=== PATIENT | male | born 1980 | race Caucasian/White ===

== ENCOUNTER 2020-02-16 13:48 | Inpatient (IN) | payer BC ==
[2020-02-16] MEDS ORDERED: Sodium Chloride 0.9% 1,000 ML IV ONE (14:08)
[2020-02-16] MEDS ORDERED: Ketorolac 30 MG/ML SDV IVPUSH ONE (14:10)
--- NOTE | 2020-02-16 14:21 | EDM.PDOC ---
ED HPI GENERAL MEDICAL PROBLEM - General Chief Complaint: Possible Sepsis Stated Complaint: ALMA BULLOCK Time Seen by Provider: 02/16/20 13:57 Source of Information: Reports: Patient History Limitations: Reports: No Limitations - History of Present Illness INITIAL COMMENTS - FREE TEXT/NARRATIVE: Is a 39-year-old male presents today for left hand swelling. Patient states t hat he has hand: The corner has some minor cuts that he attempted to clean at home. Since the past 2 days his hands become more swollen red and painful. Patient is not take any pain meds at home. Patient does report having a tetanus shot 4 years ago. Patient denies any fever chills nausea vomiting or other complaints. L hand Pain Score (Numeric/FACES): 8 - Related Data Allergies Allergy/AdvReac Type Severity Reaction Status Date / Time No Known Allergies Allergy Verified 02/16/20 13:58 Home Meds: Home Meds . [No Known Home Meds] 02/16/20 [History] Past Medical History Other HEENT History: stitches to upper eyelid Other Musculoskeletal History: multiple knee surgeries - Infectious Disease History Infectious Disease History: Reports: Chicken Pox Social & Family History - Family History Family Medical History: No Pertinent Family History - Caffeine Use Caffeine Use: Reports: Tea - Recreational Drug Use Recreational Drug Type: Reports: Marijuana/Hashish ED ROS GENERAL - Review of Systems Review Of Systems: See Below Constitutional: Reports: No Symptoms HEENT: Reports: No Symptoms Respiratory: Reports: No Symptoms Cardiovascular: Reports: No Symptoms Endocrine: Reports: No Symptoms GI/Abdominal: Reports: No Symptoms : Reports: No Symptoms Musculoskeletal: Reports: Hand Pain Skin: Reports: No Symptoms Neurological: Reports: No Symptoms Psychiatric: Reports: No Symptoms Hematologic/Lymphatic: Reports: No Symptoms Immunologic: Reports: No Symptoms ED EXAM, GENERAL - Physical Exam Exam: See Below Exam Limited By: No Limitations General Appearance: Alert, WD/WN Respiratory/Chest: No Respiratory Distress, Lungs Clear Cardiovascular: Normal Peripheral Pulses, Regular Rate, Rhythm Peripheral Pulses: 2+: Radial (L) GI/Abdominal: Soft, Non-Tender Extremities: Other (hand swelling and redness with marking outline ) Course - Vital Signs Last Recorded V/S: Last Vital Signs Temp 97.5 F 02/16/20 13:58 Pulse 85 02/16/20 14:51 Resp 17 02/16/20 14:51 BP 109/75 02/16/20 14:51 Pulse Ox 98 02/16/20 14:51 - Orders/Labs/Meds Orders: Active Orders 24 hr Category Date Time Status Patient Status [ADT] Routine ADT 02/16/20 15:33 Ordered COVID-19/FLU A+B [MOLEC] Stat Lab 02/16/20 14:32 Received CULTURE BLOOD [BC] Stat Lab 02/16/20 14:20 Received CULTURE BLOOD [BC] Stat Lab 02/16/20 14:37 Received Vancomycin/Water For INJ (PEG) [Vancomycin 1.25 GM/250 Med 02/16/20 14:45 Active ML Premix] 1.25 gm Premix Bag 1 bag IV ONETIME Blood Culture x2 Reflex Set [OM.PC] Stat Oth 02/16/20 14:23 Ordered Medication Orders Vancomycin HCl 1.25 gm/ Premix 250 mls @ 166.667 mls/hr IV ONETIME ONE Stop: 02/16/20 16:14 Last Admin: 02/16/20 14:43 Dose: 166.667 mls/hr Documented by: [id number] Labs: Laboratory Tests 02/16/20 02/16/20 02/16/20 Range/Units 14:20 14:20 14:20 WBC 20.90 H (4.0-11.0) K/uL RBC 4.64 (4.50-5.90) M/uL Hgb 14.4 (13.0-17.0) g/dL Hct 43.5 (38.0-50.0) % MCV 93.8 (80.0-98.0) fL MCH 31.0 (27.0-32.0) pg MCHC 33.1 (31.0-37.0) g/dL RDW Std Deviation 45.9 (28.0-62.0) fl RDW Coeff of Nurys 13 (11.0-15.0) % Plt Count 202 (150-400) K/uL MPV 10.70 (7.40-12.00) fL Neut % (Auto) 89.3 H (48.0-80.0) % Lymph % (Auto) 2.0 L (16.0-40.0) % [place] % (Auto) 7.8 (0.0-15.0) % Eos % (Auto) 0.7 (0.0-7.0) % Baso % (Auto) 0.2 (0.0-1.5) % Neut # (Auto) 18.7 H (1.4-5.7) K/uL Lymph # (Auto) 0.4 L (0.6-2.4) K/uL [place] # (Auto) 1.6 H (0.0-0.8) K/uL Eos # (Auto) 0.1 (0.0-0.7) K/uL Baso # (Auto) 0.0 (0.0-0.1) K/uL Nucleated RBC % 0.0 /100WBC Nucleated RBCs # 0 K/uL ESR 5 (0-14) mm/hr INR APTT (18.6-31.3) SEC Lactate (0.20-2.00) mmol/L Sodium 138 (136-148) mmol/L Potassium 3.6 (3.5-5.1) mmol/L Chloride 101 (98-107) mmol/L Carbon Dioxide 25.6 (21.0-32.0) mmol/L BUN 13 (7.0-18.0) mg/dL Creatinine 1.0 (0.8-1.3) mg/dL Est Cr Clr Drug Dosing 118.53 mL/min Estimated GFR (MDRD) > 60.0 ml/min Glucose 108 H (74-106) mg/dL Calcium 9.1 (8.5-10.1) mg/dL Phosphorus 2.4 L (2.6-4.7) mg/dL Magnesium 2.0 (1.8-2.4) mg/dL Total Bilirubin 0.9 (0.2-1.0) mg/dL AST 10 L (15-37) IU/L ALT 27 (14-63) IU/L Alkaline Phosphatase 59 (46-116) U/L Creatine Kinase 88 (26-308) U/L C-Reactive Protein 15.00 H (0.00-0.90) mg/dL Total Protein 7.1 (6.4-8.2) g/dL Albumin 3.7 (3.4-5.0) g/dL Globulin 3.4 (2.6-4.0) g/dL Albumin/Globulin Ratio 1.1 (0.9-1.6) 02/16/20 02/16/20 Range/Units 14:20 14:20 WBC (4.0-11.0) K/uL RBC (4.50-5.90) M/uL Hgb (13.0-17.0) g/dL Hct (38.0-50.0) % MCV (80.0-98.0) fL MCH (27.0-32.0) pg MCHC (31.0-37.0) g/dL RDW Std Deviation (28.0-62.0) fl RDW Coeff of Nurys (11.0-15.0) % Plt Count (150-400) K/uL MPV (7.40-12.00) fL Neut % (Auto) (48.0-80.0) % Lymph % (Auto) (16.0-40.0) % Karnes % (Auto) (0.0-15.0) % Eos % (Auto) (0.0-7.0) % Baso % (Auto) (0.0-1.5) % Neut # (Auto) (1.4-5.7) K/uL Lymph # (Auto) (0.6-2.4) K/uL [place] # (Auto) (0.0-0.8) K/uL Eos # (Auto) (0.0-0.7) K/uL Baso # (Auto) (0.0-0.1) K/uL Nucleated RBC % /100WBC Nucleated RBCs # K/uL ESR (0-14) mm/hr INR 1.11 APTT 25.9 (18.6-31.3) SEC Lactate 2.5 H* (0.20-2.00) mmol/L Sodium (136-148) mmol/L Potassium (3.5-5.1) mmol/L Chloride (98-107) mmol/L Carbon Dioxide (21.0-32.0) mmol/L BUN (7.0-18.0) mg/dL Creatinine (0.8-1.3) mg/dL Est Cr Clr Drug Dosing mL/min Estimated GFR (MDRD) ml/min Glucose (74-106) mg/dL Calcium (8.5-10.1) mg/dL Phosphorus (2.6-4.7) mg/dL Magnesium (1.8-2.4) mg/dL Total Bilirubin (0.2-1.0) mg/dL AST (15-37) IU/L ALT (14-63) IU/L Alkaline Phosphatase (46-116) U/L Creatine Kinase (26-308) U/L C-Reactive Protein (0.00-0.90) mg/dL Total Protein (6.4-8.2) g/dL Albumin (3.4-5.0) g/dL Globulin (2.6-4.0) g/dL Albumin/Globulin Ratio (0.9-1.6) Meds: Medications Generic Name Dose Route Start Last Admin Trade Name Freq PRN Reason Stop Dose Admin Vancomycin HCl 1.25 gm/ Premix 250 mls @ 166.667 mls/hr 02/16/20 14:45 02/16/20 14:43 IV 02/16/20 16:14 166.667 mls/hr ONETIME ONE Administration Discontinued Medications Generic Name Dose Route Start Last Admin Trade Name Freq PRN Reason Stop Dose Admin Sodium Chloride 1,000 mls @ 999 mls/hr 02/16/20 14:08 02/16/20 14:43 Normal Saline IV 02/16/20 15:08 999 mls/hr .BOLUS ONE Administration Ketorolac Tromethamine 30 mg 02/16/20 14:10 02/16/20 14:43 Toradol IVPUSH 02/16/20 14:11 30 mg ONETIME ONE Administration Departure - Departure Time of Disposition: 15:34 Disposition: Admitted As Inpatient 66 Condition: Good Clinical Impression: Cellulitis - Discharge Information Referrals: PCP,None [Primary Care Provider] - Forms: ED Department Discharge Sepsis Event Note (ED) - Evaluation Sepsis Screening Result: Possible Severe Sepsis Risk - Focused Exam Vital Signs: Vital Signs Temp Pulse Resp BP Pulse Ox 02/16/20 14:51 85 17 109/75 98 02/16/20 14:36 85 17 114/75 99 02/16/20 14:21 85 17 102/74 100 02/16/20 13:58 97.5 F 91 18 94/47 L 100 - My Orders Last 24 Hours: My Active Orders 02/16/20 14:20 CULTURE BLOOD [BC] Stat 02/16/20 14:23 Blood Culture x2 Reflex Set [OM.PC] Stat 02/16/20 14:32 COVID-19/FLU A+B [MOLEC] Stat 02/16/20 14:37 CULTURE BLOOD [BC] Stat 02/16/20 14:45 Vancomycin/Water For INJ (PEG) [Vancomycin 1.25 GM/250 ML Premix] 1.25 gm Premix Bag 1 bag IV ONETIME 02/16/20 15:33 Patient Status [ADT] Routine - Assessment/Plan Last 24 Hours: My Active Orders 02/16/20 14:20 CULTURE BLOOD [BC] Stat 02/16/20 14:23 Blood Culture x2 Reflex Set [OM.PC] Stat 02/16/20 14:32 COVID-19/FLU A+B [MOLEC] Stat 02/16/20 14:37 CULTURE BLOOD [BC] Stat 02/16/20 14:45 Vancomycin/Water For INJ (PEG) [Vancomycin 1.25 GM/250 ML Premix] 1.25 gm Premix Bag 1 bag IV ONETIME 02/16/20 15:33 Patient Status [ADT] Routine Assessment:: Is a 39-year-old male presents today for right hand redness and swelling. Is concerning for cellulitis. Will start patient on vancomycin IV fluids and likely admission.
[2020-02-16] MEDS ORDERED: WATER FOR INJ IV ONE (14:45)
[2020-02-16] MEDS ORDERED: VANCOMYCIN IV ONE (14:45)
--- NOTE | 2020-02-16 14:51 | CR ---
Indication: Redness, swelling and pain Technique: Three images of the left hand were acquired Comparison: None Findings: There is soft tissue swelling. There is no gas within soft tissues, radiopaque foreign body or bone destruction. There are postsurgical changes in the rest. There is screws in the scaphoid and it appears as if there is a screw in the capitate. 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 No gas within soft tissues. No evidence of osteomyelitis. Postoperative changes involving the carpus and osteoarthritis. Dictated by Zeeshan Piper MD @ Feb 16 2020 2:48PM Signed by Dr. Zeeshan Piper @ Feb 16 2020 2:50PM
[2020-02-16 14:59] LABS: BLOOD UREA NITROGEN,BUN 13 mg/dL (7.0-18.0); CARBON DIOXIDE,CO2 25.6 mmol/L (21.0-32.0); CHLORIDE,CL 101 mmol/L (98-107); GLUCOSE RANDOM 108 mg/dL (74-106); POTASSIUM,K 3.6 mmol/L (3.5-5.1); SODIUM,NA 138 mmol/L (136-148)
[2020-02-16 16:02] LABS: CORONAVIRUS COVID-19 NAA NEGATIVE (NEGATIVE); INFLUENZA A NAA NEGATIVE (NEGATIVE); INFLUENZA B NAA NEGATIVE (NEGATIVE)
[2020-02-16] MEDS ORDERED: cefTRIAXone 1 GM Vial IVPUSH ONE (18:50)
[2020-02-16] MEDS ORDERED: Acetaminophen 325 MG Tab PO PRN (19:17)
--- NOTE | 2020-02-16 19:24 | PCM.HP.2 ---
H&P History of Present Illness - General Date of Service: 02/16/20 Admit Problem/Dx: Admission Diagnosis/Problem Admission Diagnosis/Problem Cellulitis - History of Present Illness Initial Comments - Free Text/Narative: 39 yo male who suffered a small laceration over his left 2nd knuckle five days ago. He did notice some mild oozing coming from wound. Yesterday he tried closing the wound with butterfly bandage and after words his hand swelled up and developed red streaking up his arm. He denies any fevers and chills. He is able to full flex and extend his hand. L hand Pain Score (Numeric/FACES): 8 - Related Data Allergies/Adverse Reactions: Allergies Allergy/AdvReac Type Severity Reaction Status Date / Time No Known Allergies Allergy Verified 02/16/20 13:58 Home Medications: Home Meds . [No Known Home Meds] 02/16/20 [History] Past Medical History Other HEENT History: stitches to upper eyelid Other Musculoskeletal History: multiple knee surgeries - Infectious Disease History Infectious Disease History: Reports: Chicken Pox Social & Family History - Family History Family Medical History: No Pertinent Family History - Tobacco Use Tobacco Use Status *Q: Current Every Day Tobacco User Years of Tobacco use: 25 Packs/Tins Daily: 0.3 Second Hand Smoke Exposure: No - Caffeine Use Caffeine Use: Reports: Soda - Recreational Drug Use Recreational Drug Use: Yes Drug Use in Last 12 Months: Yes Recreational Drug Type: Reports: Marijuana/Hashish Recreational Drug Use Frequency: Socially H&P Review of Systems - Review of Systems: Review Of Systems: Comprehensive ROS is negative, except as noted in HPI. Exam - Exam Exam: See Below - Vital Signs Vital Signs: Last Vital Signs Temp 37.0 C 02/16/20 17:20 Pulse 84 02/16/20 17:20 Resp 16 02/16/20 17:20 BP 103/59 L 02/16/20 17:20 Pulse Ox 97 02/16/20 17:20 Weight: 91.2 kg - Exam General: Alert, Oriented HEENT: Mucosa Moist & [place] Neck: Supple Lungs: Clear to Auscultation, Normal Respiratory Effort Cardiovascular: Regular Rate, Regular Rhythm GI/Abdominal Exam: Normal Bowel Sounds, Soft, Non-Tender Extremities: No Pedal Edema Skin: Rash (edema of dorsum of left hand 3 mm laceration over left 2nd knuckle no drainage noted, red streaking up to decubitus fossa) Neurological: Strength Equal Bilateral - Patient Data Lab Results Last 24 hrs: Laboratory Results - last 24 hr 02/16/20 02/16/20 02/16/20 Range/Units 14:20 14:20 14:20 WBC 20.90 H (4.0-11.0) K/uL RBC 4.64 (4.50-5.90) M/uL Hgb 14.4 (13.0-17.0) g/dL Hct 43.5 (38.0-50.0) % MCV 93.8 (80.0-98.0) fL MCH 31.0 (27.0-32.0) pg MCHC 33.1 (31.0-37.0) g/dL RDW Std Deviation 45.9 (28.0-62.0) fl RDW Coeff of Nurys 13 (11.0-15.0) % Plt Count 202 (150-400) K/uL MPV 10.70 (7.40-12.00) fL Neut % (Auto) 89.3 H (48.0-80.0) % Lymph % (Auto) 2.0 L (16.0-40.0) % Whitley % (Auto) 7.8 (0.0-15.0) % Eos % (Auto) 0.7 (0.0-7.0) % Baso % (Auto) 0.2 (0.0-1.5) % Neut # (Auto) 18.7 H (1.4-5.7) K/uL Lymph # (Auto) 0.4 L (0.6-2.4) K/uL Whitley # (Auto) 1.6 H (0.0-0.8) K/uL Eos # (Auto) 0.1 (0.0-0.7) K/uL Baso # (Auto) 0.0 (0.0-0.1) K/uL Nucleated RBC % 0.0 /100WBC Nucleated RBCs # 0 K/uL ESR 5 (0-14) mm/hr INR APTT (18.6-31.3) SEC Lactate (0.20-2.00) mmol/L Sodium 138 (136-148) mmol/L Potassium 3.6 (3.5-5.1) mmol/L Chloride 101 (98-107) mmol/L Carbon Dioxide 25.6 (21.0-32.0) mmol/L BUN 13 (7.0-18.0) mg/dL Creatinine 1.0 (0.8-1.3) mg/dL Est Cr Clr Drug Dosing 118.53 mL/min Estimated GFR (MDRD) > 60.0 ml/min Glucose 108 H (74-106) mg/dL Calcium 9.1 (8.5-10.1) mg/dL Phosphorus 2.4 L (2.6-4.7) mg/dL Magnesium 2.0 (1.8-2.4) mg/dL Total Bilirubin 0.9 (0.2-1.0) mg/dL AST 10 L (15-37) IU/L ALT 27 (14-63) IU/L Alkaline Phosphatase 59 (46-116) U/L Creatine Kinase 88 (26-308) U/L C-Reactive Protein 15.00 H (0.00-0.90) mg/dL Total Protein 7.1 (6.4-8.2) g/dL Albumin 3.7 (3.4-5.0) g/dL Globulin 3.4 (2.6-4.0) g/dL Albumin/Globulin Ratio 1.1 (0.9-1.6) Influenza Type A RNA (NEGATIVE) Influenza Type B RNA (NEGATIVE) SARS-CoV-2 RNA ([facility]) (NEGATIVE) 02/16/20 02/16/20 02/16/20 Range/Units 14:20 14:20 14:32 WBC (4.0-11.0) K/uL RBC (4.50-5.90) M/uL Hgb (13.0-17.0) g/dL Hct (38.0-50.0) % MCV (80.0-98.0) fL MCH (27.0-32.0) pg MCHC (31.0-37.0) g/dL RDW Std Deviation (28.0-62.0) fl RDW Coeff of Nurys (11.0-15.0) % Plt Count (150-400) K/uL MPV (7.40-12.00) fL Neut % (Auto) (48.0-80.0) % Lymph % (Auto) (16.0-40.0) % Whitley % (Auto) (0.0-15.0) % Eos % (Auto) (0.0-7.0) % Baso % (Auto) (0.0-1.5) % Neut # (Auto) (1.4-5.7) K/uL Lymph # (Auto) (0.6-2.4) K/uL Whitley # (Auto) (0.0-0.8) K/uL Eos # (Auto) (0.0-0.7) K/uL Baso # (Auto) (0.0-0.1) K/uL Nucleated RBC % /100WBC Nucleated RBCs # K/uL ESR (0-14) mm/hr INR 1.11 APTT 25.9 (18.6-31.3) SEC Lactate 2.5 H* (0.20-2.00) mmol/L Sodium (136-148) mmol/L Potassium (3.5-5.1) mmol/L Chloride (98-107) mmol/L Carbon Dioxide (21.0-32.0) mmol/L BUN (7.0-18.0) mg/dL Creatinine (0.8-1.3) mg/dL Est Cr Clr Drug Dosing mL/min Estimated GFR (MDRD) ml/min Glucose (74-106) mg/dL Calcium (8.5-10.1) mg/dL Phosphorus (2.6-4.7) mg/dL Magnesium (1.8-2.4) mg/dL Total Bilirubin (0.2-1.0) mg/dL AST (15-37) IU/L ALT (14-63) IU/L Alkaline Phosphatase (46-116) U/L Creatine Kinase (26-308) U/L C-Reactive Protein (0.00-0.90) mg/dL Total Protein (6.4-8.2) g/dL Albumin (3.4-5.0) g/dL Globulin (2.6-4.0) g/dL Albumin/Globulin Ratio (0.9-1.6) Influenza Type A RNA NEGATIVE (NEGATIVE) Influenza Type B RNA NEGATIVE (NEGATIVE) SARS-CoV-2 RNA (DALE) NEGATIVE (NEGATIVE) 02/16/20 Range/Units 19:02 WBC (4.0-11.0) K/uL RBC (4.50-5.90) M/uL Hgb (13.0-17.0) g/dL Hct (38.0-50.0) % MCV (80.0-98.0) fL MCH (27.0-32.0) pg MCHC (31.0-37.0) g/dL RDW Std Deviation (28.0-62.0) fl RDW Coeff of Nurys (11.0-15.0) % Plt Count (150-400) K/uL MPV (7.40-12.00) fL Neut % (Auto) (48.0-80.0) % Lymph % (Auto) (16.0-40.0) % Whitley % (Auto) (0.0-15.0) % Eos % (Auto) (0.0-7.0) % Baso % (Auto) (0.0-1.5) % Neut # (Auto) (1.4-5.7) K/uL Lymph # (Auto) (0.6-2.4) K/uL Whitley # (Auto) (0.0-0.8) K/uL Eos # (Auto) (0.0-0.7) K/uL Baso # (Auto) (0.0-0.1) K/uL Nucleated RBC % /100WBC Nucleated RBCs # K/uL ESR (0-14) mm/hr INR APTT (18.6-31.3) SEC Lactate 1.9 (0.20-2.00) mmol/L Sodium (136-148) mmol/L Potassium (3.5-5.1) mmol/L Chloride (98-107) mmol/L Carbon Dioxide (21.0-32.0) mmol/L BUN (7.0-18.0) mg/dL Creatinine (0.8-1.3) mg/dL Est Cr Clr Drug Dosing mL/min Estimated GFR (MDRD) ml/min Glucose (74-106) mg/dL Calcium (8.5-10.1) mg/dL Phosphorus (2.6-4.7) mg/dL Magnesium (1.8-2.4) mg/dL Total Bilirubin (0.2-1.0) mg/dL AST (15-37) IU/L ALT (14-63) IU/L Alkaline Phosphatase (46-116) U/L Creatine Kinase (26-308) U/L C-Reactive Protein (0.00-0.90) mg/dL Total Protein (6.4-8.2) g/dL Albumin (3.4-5.0) g/dL Globulin (2.6-4.0) g/dL Albumin/Globulin Ratio (0.9-1.6) Influenza Type A RNA (NEGATIVE) Influenza Type B RNA (NEGATIVE) SARS-CoV-2 RNA ([facility]) (NEGATIVE) Result Diagrams: 02/16/20 14:20 02/16/20 14:20 Sepsis Event Note - Evaluation Sepsis Screening Result: No Definite Risk - Focused Exam Vital Signs: Vital Signs Temp Pulse Resp BP Pulse Ox 02/16/20 17:20 37.0 C 84 16 103/59 L 97 02/16/20 16:21 90 16 120/73 97 02/16/20 15:51 90 16 128/70 97 02/16/20 15:36 89 16 121/68 95 02/16/20 15:21 89 17 134/73 95 02/16/20 14:51 85 17 109/75 98 02/16/20 14:36 85 17 114/75 99 02/16/20 14:21 85 17 102/74 100 02/16/20 13:58 36.4 C 91 18 94/47 L 100 Problem List Initiated/Reviewed/Updated: Yes Orders Last 24hrs: Active Orders 24 hr Category Date Time Status Patient Status [ADT] Routine ADT 02/16/20 15:33 Active Antiembolic Devices [RC] PER UNIT ROUTINE Care 02/16/20 19:18 Ordered Oxygen Therapy [RC] PRN Care 02/16/20 19:17 Ordered Up ad Chary [RC] ASDIRECTED Care 02/16/20 19:17 Ordered VTE/DVT Education [RC] PER UNIT ROUTINE Care 02/16/20 19:17 Ordered Vital Signs [RC] Q4H Care 02/16/20 19:17 Ordered Regular Diet [DIET] Diet 02/16/20 Dinner Active BASIC METABOLIC PANEL,BMP [CHEM] AM Lab 02/17/20 05:11 Ordered CBC WITH AUTO DIFF [HEME] AM Lab 02/17/20 05:11 Ordered CULTURE BLOOD [BC] Stat Lab 02/16/20 14:20 Received CULTURE BLOOD [BC] Stat Lab 02/16/20 14:37 Received LACTATE WITH REFLEX [BG] Stat Lab 02/16/20 21:00 Ordered VANCOMYCIN TROUGH [CHEM] Timed Lab 02/18/20 20:00 Ordered Acetaminophen [TylenoL] Med 02/16/20 19:17 Ordered 650 mg PO Q4H PRN Ibuprofen [Motrin] Med 02/16/20 19:17 Ordered 400 mg PO Q6H PRN Pharmacy to Dose - Vancomycin Med 02/16/20 19:00 Pending 1 dose .XX ASDIRECTED Sodium Chloride 0.9% @ 125 MLS/HR (1000ml) Med 02/16/20 19:30 Ordered Sodium Chloride 0.9% [Normal Saline] 1,000 ml IV ASDIRECTED Vancomycin/Water For INJ (PEG) [Vancomycin 1.25 GM/250 Med 02/16/20 21:00 Active ML Premix] 250 ml IV Q12H Blood Culture x2 Reflex Set [OM.PC] Stat Oth 02/16/20 14:23 Ordered Sequential Compression Device [OM.PC] Per Unit Routine Oth 02/16/20 19:18 Ordered Resuscitation Status Routine Resus Stat 02/16/20 19:17 Ordered Medication Orders Vancomycin HCl (Vancomycin 1.25 Gm/250 Ml Premix) 250 mls @ 166.667 mls/hr IV Q12H [facility] Vancomycin HCl (Pharmacy To Dose - Vancomycin) 1 dose .XX ASDIRECTED [facility]ERSON Assessment/Plan Comment:: 39 yo male admitted for hand cellulitis. We will treat with Vancomycin. Blood cultures pending.
[2020-02-16] MEDS ORDERED: cefTRIAXone 1 GM in Premix Bag 1 BAG IV ONE (19:40)
[2020-02-16] MEDS ORDERED: [UNRECOGNIZED DRUG - OTHER] IV SCH (21:00)
[2020-02-16] MEDS ORDERED: VANCOMYCIN IV SCH (21:00)
[2020-02-16] MEDS: Sodium Chloride 0.9% 1,000 ML IV SCH (21:15)
[2020-02-17] MEDS ORDERED: Melatonin 3 MG Tab PO PRN (00:33)
[2020-02-17] MEDS: Ibuprofen 400 MG Tab PO PRN ×2 (00:47→07:54)
[2020-02-17 06:02] LABS: BLOOD UREA NITROGEN,BUN 11 mg/dL (7.0-18.0); CARBON DIOXIDE,CO2 24.8 mmol/L (21.0-32.0); CHLORIDE,CL 103 mmol/L (98-107); GLUCOSE RANDOM 122 mg/dL (74-106); POTASSIUM,K 3.3 mmol/L (3.5-5.1); SODIUM,NA 137 mmol/L (136-148)
[2020-02-17] MEDS: VANCOMYCIN IV SCH ×2 (07:37→15:16)
[2020-02-17] MEDS: WATER FOR INJ IV SCH ×2 (07:37→15:16)
[2020-02-17] MEDS ORDERED: Potassium Chloride 20 MEQ Tab.ER PO ONE (08:06)
[2020-02-17] MEDS: Sodium Chloride 0.9% 1,000 ML IV SCH (11:01)
--- NOTE | 2020-02-17 14:10 | PCM.PN ---
- General Info Date of Service: 02/17/20 Admission Dx/Problem (Free Text): Admission Diagnosis/Problem Admission Diagnosis/Problem Cellulitis Subjective Update: Reports he is feeling improved today. No fevers overnight no chest pain or shortness of breath. Reports that his hand is feeling improved swelling has decreased and redness has improved. Streaking up his anterior forearm has improved as well. He is able to move his fingers without significant pain wrist movement is limited but this is at baseline due to previous surgery. He is very eager to be discharged home as he is expecting a baby with his significant other. He is agreeable to stay 1 more [address] scan. Functional Status: Reports: Pain Controlled, Tolerating Diet, Ambulating, Urinating - Review of Systems General: Reports: No Symptoms. Denies: Fever, Weakness, Fatigue, Malaise HEENT: Reports: No Symptoms. Denies: Headaches, Rhinitis, Visual Changes Pulmonary: Reports: No Symptoms. Denies: Shortness of Breath Cardiovascular: Reports: No Symptoms. Denies: Chest Pain Gastrointestinal: Reports: No Symptoms. Denies: Abdominal Pain, Nausea, Vomiting Genitourinary: Reports: No Symptoms. Denies: Dysuria, Frequency, Burning, Incontinence Musculoskeletal: Reports: No Symptoms. Denies: Joint Pain Skin: Reports: No Symptoms Neurological: Reports: No Symptoms Psychiatric: Reports: No Symptoms - Patient Data Vitals - Most Recent: Last Vital Signs Temp 97.6 F 02/17/20 12:00 Pulse 83 02/17/20 12:00 Resp 16 02/17/20 12:00 BP 108/54 L 02/17/20 12:00 Pulse Ox 98 02/17/20 12:00 Weight - Most Recent: 91.2 kg I&O - Last 24 Hours: Intake & Output 02/16/20 02/17/20 02/17/20 22:59 06:59 14:59 Intake Total 50 900 Output Total 400 Balance 50 500 Lab Results Last 24 Hours: Laboratory Results - last 24 hr 02/16/20 02/16/20 02/16/20 Range/Units 14:20 14:20 14:20 WBC 20.90 H (4.0-11.0) K/uL RBC 4.64 (4.50-5.90) M/uL Hgb 14.4 (13.0-17.0) g/dL Hct 43.5 (38.0-50.0) % MCV 93.8 (80.0-98.0) fL MCH 31.0 (27.0-32.0) pg MCHC 33.1 (31.0-37.0) g/dL RDW Std Deviation 45.9 (28.0-62.0) fl RDW Coeff of Nurys 13 (11.0-15.0) % Plt Count 202 (150-400) K/uL MPV 10.70 (7.40-12.00) fL Neut % (Auto) 89.3 H (48.0-80.0) % Lymph % (Auto) 2.0 L (16.0-40.0) % [place] % (Auto) 7.8 (0.0-15.0) % Eos % (Auto) 0.7 (0.0-7.0) % Baso % (Auto) 0.2 (0.0-1.5) % Neut # (Auto) 18.7 H (1.4-5.7) K/uL Lymph # (Auto) 0.4 L (0.6-2.4) K/uL [place] # (Auto) 1.6 H (0.0-0.8) K/uL Eos # (Auto) 0.1 (0.0-0.7) K/uL Baso # (Auto) 0.0 (0.0-0.1) K/uL Nucleated RBC % 0.0 /100WBC Nucleated RBCs # 0 K/uL ESR 5 (0-14) mm/hr INR APTT (18.6-31.3) SEC Lactate (0.20-2.00) mmol/L Sodium 138 (136-148) mmol/L Potassium 3.6 (3.5-5.1) mmol/L Chloride 101 (98-107) mmol/L Carbon Dioxide 25.6 (21.0-32.0) mmol/L BUN 13 (7.0-18.0) mg/dL Creatinine 1.0 (0.8-1.3) mg/dL Est Cr Clr Drug Dosing 118.53 mL/min Estimated GFR (MDRD) > 60.0 ml/min Glucose 108 H (74-106) mg/dL Calcium 9.1 (8.5-10.1) mg/dL Phosphorus 2.4 L (2.6-4.7) mg/dL Magnesium 2.0 (1.8-2.4) mg/dL Total Bilirubin 0.9 (0.2-1.0) mg/dL AST 10 L (15-37) IU/L ALT 27 (14-63) IU/L Alkaline Phosphatase 59 (46-116) U/L Creatine Kinase 88 (26-308) U/L C-Reactive Protein 15.00 H (0.00-0.90) mg/dL Total Protein 7.1 (6.4-8.2) g/dL Albumin 3.7 (3.4-5.0) g/dL Globulin 3.4 (2.6-4.0) g/dL Albumin/Globulin Ratio 1.1 (0.9-1.6) Influenza Type A RNA (NEGATIVE) Influenza Type B RNA (NEGATIVE) SARS-CoV-2 RNA ([facility]) (NEGATIVE) 02/16/20 02/16/20 02/16/20 Range/Units 14:20 14:20 14:32 WBC (4.0-11.0) K/uL RBC (4.50-5.90) M/uL Hgb (13.0-17.0) g/dL Hct (38.0-50.0) % MCV (80.0-98.0) fL MCH (27.0-32.0) pg MCHC (31.0-37.0) g/dL RDW Std Deviation (28.0-62.0) fl RDW Coeff of Nurys (11.0-15.0) % Plt Count (150-400) K/uL MPV (7.40-12.00) fL Neut % (Auto) (48.0-80.0) % Lymph % (Auto) (16.0-40.0) % [place] % (Auto) (0.0-15.0) % Eos % (Auto) (0.0-7.0) % Baso % (Auto) (0.0-1.5) % Neut # (Auto) (1.4-5.7) K/uL Lymph # (Auto) (0.6-2.4) K/uL [place] # (Auto) (0.0-0.8) K/uL Eos # (Auto) (0.0-0.7) K/uL Baso # (Auto) (0.0-0.1) K/uL Nucleated RBC % /100WBC Nucleated RBCs # K/uL ESR (0-14) mm/hr INR 1.11 APTT 25.9 (18.6-31.3) SEC Lactate 2.5 H* (0.20-2.00) mmol/L Sodium (136-148) mmol/L Potassium (3.5-5.1) mmol/L Chloride (98-107) mmol/L Carbon Dioxide (21.0-32.0) mmol/L BUN (7.0-18.0) mg/dL Creatinine (0.8-1.3) mg/dL Est Cr Clr Drug Dosing mL/min Estimated GFR (MDRD) ml/min Glucose (74-106) mg/dL Calcium (8.5-10.1) mg/dL Phosphorus (2.6-4.7) mg/dL Magnesium (1.8-2.4) mg/dL Total Bilirubin (0.2-1.0) mg/dL AST (15-37) IU/L ALT (14-63) IU/L Alkaline Phosphatase (46-116) U/L Creatine Kinase (26-308) U/L C-Reactive Protein (0.00-0.90) mg/dL Total Protein (6.4-8.2) g/dL Albumin (3.4-5.0) g/dL Globulin (2.6-4.0) g/dL Albumin/Globulin Ratio (0.9-1.6) Influenza Type A RNA NEGATIVE (NEGATIVE) Influenza Type B RNA NEGATIVE (NEGATIVE) SARS-CoV-2 RNA ([facility]) NEGATIVE (NEGATIVE) 02/16/20 02/16/20 02/17/20 Range/Units 19:02 21:01 05:08 WBC 14.98 H (4.0-11.0) K/uL RBC 4.28 L (4.50-5.90) M/uL Hgb 13.2 (13.0-17.0) g/dL Hct 40.2 (38.0-50.0) % MCV 93.9 (80.0-98.0) fL MCH 30.8 (27.0-32.0) pg MCHC 32.8 (31.0-37.0) g/dL RDW Std Deviation 46.4 (28.0-62.0) fl RDW Coeff of Nurys 14 (11.0-15.0) % Plt Count 182 (150-400) K/uL MPV 10.80 (7.40-12.00) fL Neut % (Auto) 85.9 H (48.0-80.0) % Lymph % (Auto) 5.0 L (16.0-40.0) % [place] % (Auto) 5.8 (0.0-15.0) % Eos % (Auto) 3.1 (0.0-7.0) % Baso % (Auto) 0.2 (0.0-1.5) % Neut # (Auto) 12.9 H (1.4-5.7) K/uL Lymph # (Auto) 0.8 (0.6-2.4) K/uL [place] # (Auto) 0.9 H (0.0-0.8) K/uL Eos # (Auto) 0.5 (0.0-0.7) K/uL Baso # (Auto) 0.0 (0.0-0.1) K/uL Nucleated RBC % 0.0 /100WBC Nucleated RBCs # 0 K/uL ESR (0-14) mm/hr INR APTT (18.6-31.3) SEC Lactate 1.9 1.5 (0.20-2.00) mmol/L Sodium (136-148) mmol/L Potassium (3.5-5.1) mmol/L Chloride (98-107) mmol/L Carbon Dioxide (21.0-32.0) mmol/L BUN (7.0-18.0) mg/dL Creatinine (0.8-1.3) mg/dL Est Cr Clr Drug Dosing mL/min Estimated GFR (MDRD) ml/min Glucose (74-106) mg/dL Calcium (8.5-10.1) mg/dL Phosphorus (2.6-4.7) mg/dL Magnesium (1.8-2.4) mg/dL Total Bilirubin (0.2-1.0) mg/dL AST (15-37) IU/L ALT (14-63) IU/L Alkaline Phosphatase (46-116) U/L Creatine Kinase (26-308) U/L C-Reactive Protein (0.00-0.90) mg/dL Total Protein (6.4-8.2) g/dL Albumin (3.4-5.0) g/dL Globulin (2.6-4.0) g/dL Albumin/Globulin Ratio (0.9-1.6) Influenza Type A RNA (NEGATIVE) Influenza Type B RNA (NEGATIVE) SARS-CoV-2 RNA ([facility]) (NEGATIVE) 02/17/20 Range/Units 05:08 WBC (4.0-11.0) K/uL RBC (4.50-5.90) M/uL Hgb (13.0-17.0) g/dL Hct (38.0-50.0) % MCV (80.0-98.0) fL MCH (27.0-32.0) pg MCHC (31.0-37.0) g/dL RDW Std Deviation (28.0-62.0) fl RDW Coeff of Nuyrs (11.0-15.0) % Plt Count (150-400) K/uL MPV (7.40-12.00) fL Neut % (Auto) (48.0-80.0) % Lymph % (Auto) (16.0-40.0) % [place] % (Auto) (0.0-15.0) % Eos % (Auto) (0.0-7.0) % Baso % (Auto) (0.0-1.5) % Neut # (Auto) (1.4-5.7) K/uL Lymph # (Auto) (0.6-2.4) K/uL [place] # (Auto) (0.0-0.8) K/uL Eos # (Auto) (0.0-0.7) K/uL Baso # (Auto) (0.0-0.1) K/uL Nucleated RBC % /100WBC Nucleated RBCs # K/uL ESR (0-14) mm/hr INR APTT (18.6-31.3) SEC Lactate (0.20-2.00) mmol/L Sodium 137 (136-148) mmol/L Potassium 3.3 L (3.5-5.1) mmol/L Chloride 103 (98-107) mmol/L Carbon Dioxide 24.8 (21.0-32.0) mmol/L BUN 11 (7.0-18.0) mg/dL Creatinine 0.9 (0.8-1.3) mg/dL Est Cr Clr Drug Dosing 128.12 mL/min Estimated GFR (MDRD) > 60.0 ml/min Glucose 122 H (74-106) mg/dL Calcium 8.6 (8.5-10.1) mg/dL Phosphorus (2.6-4.7) mg/dL Magnesium (1.8-2.4) mg/dL Total Bilirubin (0.2-1.0) mg/dL AST (15-37) IU/L ALT (14-63) IU/L Alkaline Phosphatase (46-116) U/L Creatine Kinase (26-308) U/L C-Reactive Protein (0.00-0.90) mg/dL Total Protein (6.4-8.2) g/dL Albumin (3.4-5.0) g/dL Globulin (2.6-4.0) g/dL Albumin/Globulin Ratio (0.9-1.6) Influenza Type A RNA (NEGATIVE) Influenza Type B RNA (NEGATIVE) SARS-CoV-2 RNA ([facility]) (NEGATIVE) Med Orders - Current: Current Medications Acetaminophen (Tylenol) 650 mg PO Q4H PRN PRN Reason: Pain (Mild 1-3)/fever Last Admin: 02/16/20 20:20 Dose: 650 mg Documented by: Sodium Chloride (Normal Saline) 1,000 mls @ 125 mls/hr IV ASDIRECTED [facility] Last Admin: 02/17/20 11:01 Dose: 125 mls/hr Documented by: Vancomycin HCl 1.25 gm/ Premix 250 mls @ 166.667 mls/hr IV Q8H [facility] Last Admin: 02/17/20 07:37 Dose: 166.667 mls/hr Documented by: Ibuprofen (Motrin) 400 mg PO Q6H PRN PRN Reason: Pain (mild 1-3) Last Admin: 02/17/20 07:54 Dose: 400 mg Documented by: Melatonin (Melatonin) 6 mg PO BEDTIME PRN PRN Reason: Insomnia Last Admin: 02/17/20 00:50 Dose: 6 mg Documented by: Vancomycin HCl (Pharmacy To Dose - Vancomycin) 1 dose .XX ASDIRECTED [facility] Discontinued Medications Ceftriaxone Sodium (Rocephin) 1 gm IVPUSH ONETIME ONE Stop: 02/16/20 18:51 Last Admin: 02/16/20 22:42 Dose: Not Given Documented by: Sodium Chloride (Normal Saline) 1,000 mls @ 999 mls/hr IV .BOLUS ONE Stop: 02/16/20 15:08 Last Admin: 02/16/20 14:43 Dose: 999 mls/hr Documented by: Vancomycin HCl 1.25 gm/ Premix 250 mls @ 166.667 mls/hr IV ONETIME ONE Stop: 02/16/20 16:14 Last Admin: 02/16/20 14:43 Dose: 166.667 mls/hr Documented by: Vancomycin HCl (Vancomycin 1.25 Gm/250 Ml Premix) 250 mls @ 166.667 mls/hr IV Q12H [facility] Last Admin: 02/16/20 22:33 Dose: 166.667 mls/hr Documented by: Ceftriaxone Sodium/Dextrose 1 (gm/ Premix) 50 mls @ 100 mls/hr IV ONETIME ONE Stop: 02/16/20 20:09 Last Admin: 02/16/20 20:25 Dose: 100 mls/hr Documented by: Ketorolac Tromethamine (Toradol) 30 mg IVPUSH ONETIME ONE Stop: 02/16/20 14:11 Last Admin: 02/16/20 14:43 Dose: 30 mg Documented by: Potassium Chloride (Klor-Con M20) 40 meq PO ONETIME ONE Stop: 02/17/20 08:07 Last Admin: 02/17/20 08:24 Dose: 40 meq Documented by: - Exam General: Alert, Oriented, Cooperative, No Acute Distress Lungs: Clear to Auscultation, Normal Respiratory Effort Cardiovascular: Regular Rate, Regular Rhythm GI/Abdominal Exam: Normal Bowel Sounds, Soft, Non-Tender Back Exam: Normal Inspection, Full Range of Motion Extremities: Normal Inspection, Normal Range of Motion, Non-Tender, No Pedal Edema Wound/Incisions: Healing Well Neurological: No New Focal Deficit Psy/Mental Status: Alert, Normal Affect, Normal Mood Sepsis Event Note - Evaluation Sepsis Screening Result: No Definite Risk - Focused Exam Vital Signs: Vital Signs Temp Pulse Resp BP Pulse Ox 02/17/20 12:00 97.6 F 83 16 108/54 L 98 02/17/20 08:00 98.6 F 94 16 107/55 L 02/17/20 04:00 99 F 82 15 108/56 L 95 - Problem List & Annotations (1) Cellulitis SNOMED Code(s): 037428890 Code(s): L03.90 - CELLULITIS, UNSPECIFIED Status: Acute Current Visit: Yes Qualifiers: Site of cellulitis: extremity Laterality: left - Problem List Review Problem List Initiated/Reviewed/Updated: Yes - My Orders Last 24 Hours: My Active Orders 02/17/20 14:01 Hand w Cont Lt [MR] Urgent 02/17/20 14:03 Hand w Cont Lt [CT] Urgent - Plan Plan:: 39 yo male admitted for hand cellulitis. 1. Left hand cellulitis - Continue vancomycin. - Blood cultures pending. -We will obtain CT with contrast of left hand to evaluate possibility of abscess and or involvement of hardware that is present within the wrist and hand. VTE prophylaxis: SCDs and ambulation CODE STATUS: Full code Dispo: 1-2 days pending improvement
--- NOTE | 2020-02-17 16:38 | CT ---
INDICATION: Redness and swelling. History of injury 5 days ago. TECHNIQUE: Multi detector imaging mid formed finger tips. Axial coronal and sagittal reformats. FINDINGS: Recessed fixation screws in the scaphoid which has relatively increased density compared to the other ossicles but no fragmentation or collapse. Marrow radiocarpal joint space. Subchondral sclerosis, cysts and small osteophytes suggests posttraumatic arthrosis. Narrowing and spurring in the distal radioulnar joint as well. Fixation screw in the proximal capitate. Irregular margined roughly lentiform nonunited chronic appearing ossicle at the dorsal margin of the proximal capitate. Degenerative arthrosis between capitate and lunate. Minor degenerative arthrosis of the triscaphe joint and 1st carpal metacarpal joint. Metacarpophalangeal joints and fingers are normal. No soft tissue air. Edema across the dorsum of the wrist and hand. This is more pronounced into the base of the 2nd index finger. No definite tenosynovitis. No radiopaque foreign body. IMPRESSION: 1. 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 Chronic nonunited fracture fragment dorsal intercarpal row at the lunate articulation capitate. 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 2. Cellulitis or contusion edema across the dorsum of the hand. Please note that all CT scans at this facility use dose modulation, iterative reconstruction, and/or weight-based dosing when appropriate to reduce radiation dose to as low as reasonably achievable. Dictated by Ajith Quarles MD @ Feb 17 2020 4:33PM Signed by Dr. Ajith Quarles @ Feb 17 2020 4:38PM
[2020-02-17] MEDS ORDERED: Iopamidol 755 MG/ML 500 ML Multipack Bottle IVPUSH STA (16:55)
== END 2020-02-17 22:45 | disposition left against medical advice (07) | DRG 383 ==
LOC: MW.ED 13:48 → MW.MS 16:21
PROVIDERS: ADMIT Internal Medicine; ATTEND Internal Medicine
DX: L03.114 Cellulitis of left upper limb (principal); F17.210 Nicotine dependence, cigarettes, uncomplicated; Z20.828 Contact with and (suspected) exposure to other viral communicable diseases
CPT/HCPCS: 0240U; 36415; 73130-26-LT; 73130-LT; 73201-26-LT; 73201-LT; 80048; 80053; 82550; 83605; 83735; 84100; 85025; 85610; 85652; 85730; 86140; 87040; 96365; 96375; 99283; 99284-25; A9270-GY; J0696; J1885; J3370; J7030; Q9967